=== PATIENT | female | born 1990 | race African-American/Black ===

== ENCOUNTER 2020-03-05 12:22 | Outpatient (CLI) | payer OTHER ==
[2020-03-05 13:10] VITALS: BP 108/75
--- NOTE | 2020-03-05 15:04 | Ultrasound Report ---
ULTRASOUND OBSTETRIC LIMITED ULTRASOUND BIOPHYSICAL PROFILE INDICATION / CLINICAL INFORMATION: nrnst in office. Clinical Gestational Age (GA): 40.0 weeks.days COMPARISON: None available. FINDINGS: BREATHING MOVEMENT = 2 GROSS BODY MOVEMENT = 2 TONE = 2 QUALITATIVE AMNIOTIC FLUID VOLUME = 2 TOTAL BIOPHYSICAL SCORE = 8/8 HEART RATE (beats per minute): 133 ADDITIONAL FINDINGS: None. IMPRESSION: 1. Biophysical Score = 8/8 2. heart rate of 133 bpm. Signer Name: Yves Harris MD Signed: 03/05/2020 3:00 PM Workstation Name: [id number]
== END 2020-03-05 14:35 | disposition home or self-care (01) ==
LOC: TRG 12:22 → APU 12:23 → TRG 14:35
PROVIDERS: ATTEND Obstetrics & Gynecology
DX: O47.1 False labor at or after 37 completed weeks of gestation (principal); Z3A.40 40 weeks gestation of pregnancy
CPT/HCPCS: 59025; 76819

== ENCOUNTER 2020-03-10 10:45 | Outpatient (CLI) | payer OTHER ==
[2020-03-10 11:29] VITALS: BP 115/73
--- NOTE | 2020-03-10 14:17 | Ultrasound Report ---
ULTRASOUND BIOPHYSICAL PROFILE INDICATION: need jose luis. COMPARISON: Biophysical profile 03/05/2020 FINDINGS: BREATHING MOVEMENT = 2 GROSS BODY MOVEMENT = 2 TONE = 2 QUALITATIVE AMNIOTIC FLUID VOLUME = 2 TOTAL BIOPHYSICAL SCORE = 02/16 AMNIOTIC FLUID INDEX (cm) = 10.8 PRESENTATION: Cephalic. HEART RATE (beats per minute): 133 IMPRESSION: 1. biophysical profile = 02/16 Signer Name: Jean Paul Huang MD Signed: 03/10/2020 2:13 PM Workstation Name: [id number]
== END 2020-03-10 14:35 | disposition home or self-care (01) ==
LOC: TRG 10:45 → APU 10:47 → TRG 14:35
PROVIDERS: ATTEND Obstetrics & Gynecology
DX: O47.1 False labor at or after 37 completed weeks of gestation (principal); Z3A.40 40 weeks gestation of pregnancy
CPT/HCPCS: 59025; 76815; 76819

== ENCOUNTER 2020-03-11 07:42 | Inpatient (IN) | payer OTHER ==
[2020-03-11] MEDS ORDERED: LACTATED RINGERS 1,000 ML IV SCH (09:00)
[2020-03-11] MEDS ORDERED: MINERAL OIL 30 ML ORAL LIQD PO PRN ×2 (09:00→22:00)
[2020-03-11] MEDS ORDERED: OXYTOCIN DRIP 30 UNITS/500 ML BAG IV SCH ×2 (09:00→10:00)
[2020-03-11] MEDS ORDERED: OXYTOCIN 20 UNIT/1000ML DRIP 20 UNITS/1,000 ML BAG IV SCH ×2 (09:00→10:00)
[2020-03-11] MEDS ORDERED: ACETAMINOPHEN 325 MG TAB PO PRN (09:00)
[2020-03-11] MEDS ORDERED: LIDOCAINE (2%) 20 MG/1 ML VIAL 20 ML MDV INFILTRATI SCH (09:00)
[2020-03-11] MEDS ORDERED: TERBUTALINE 1 MG/1 ML INJ SUB-Q PRN (09:00)
[2020-03-11] MEDS ORDERED: ePHEDrine SULFATE 50 MG/1 ML INJ IV PRN (09:00)
[2020-03-11 09:26] LABS: Mean Corpuscular HGB Conc 34 % (30-34); Mean Corpuscular Volume 77 fl (79-97); Platelet Count 204 K/mm3 (140-440); Red Blood Count 4.69 M/mm3 (3.65-5.03)
[2020-03-11 09:27] LABS: Red Cell Distribution Width 21.8 % (13.2-15.2)
[2020-03-11] MEDS ORDERED: AMPICILLIN/NS 2 GM/100 ML 2 GM/100 ML BAG IV ONE ×2 (10:00→14:00)
[2020-03-11] MEDS ORDERED: NALOXONE 0.4 MG/1 ML INJ IV PRN (10:00)
[2020-03-11] MEDS ORDERED: ONDANSETRON 4 MG/2 ML INJ IV PRN (10:00)
--- NOTE | 2020-03-11 10:18 | History and Physical Report ---
History of Present Illness Date of examination: 03/11/20 Date of admission: 03/11/20 07:43 Chief complaint: My water broke at 0630 this morning History of present illness: Early entry to care, uncomplicated course Past History Past Medical History: no pertinent history Past Surgical History: no surgical history Family/Genetic History: none Social history: no significant social history, - Obstetrical History Expected Date of Delivery: 03/04/20 Actual Gestation: 41 Week(s) 0 Day(s) : 2 Induced : 1 Medications and Allergies Allergies Allergy/AdvReac Type Severity Reaction Status Date / Time No Known Allergies Allergy Verified 03/05/20 12:49 Active Meds: Active Medications Acetaminophen (Tylenol) 650 mg PO Q4H PRN PRN Reason: Pain, Mild (1-3) Butorphanol Tartrate (Stadol) 2 mg IV Q2H PRN PRN Reason: Pain , Severe (7-10) Ephedrine Sulfate (Ephedrine Sulfate) 10 mg IV Q2M PRN PRN Reason: Hypotension Oxytocin/Sodium Chloride (Pitocin/Ns 30 Unit/500ml) 30 units in 500 mls @ 2 mls/hr IV TITR DANA; Protocol Lactated Ringer's (Lactated Ringers) 1,000 mls @ 125 mls/hr IV DIRECT DANA Oxytocin/Sodium Chloride (Pitocin/Ns 20 Unit/1000ml Drip) 20 units in 1,000 mls @ 125 mls/hr IV DIRECT DANA Ampicillin Sodium (Ampicillin/Ns 1 Gm/50 Ml) 1 gm in 50 mls @ 100 mls/hr IV Q4HR DANA; Protocol Ampicillin Sodium (Ampicillin/Ns 2 Gm/100 Ml) 2 gm in 100 mls @ 100 mls/hr IV ONCE ONE; Protocol Stop: 03/11/20 10:59 Lidocaine (Xylocaine 2%) 20 ml INFILTRATI ONCE DANA Stop: 03/12/20 08:59 Mineral Oil (Mineral Oil) 30 ml PO QHS PRN PRN Reason: Constipation Naloxone HCl (Naloxone) 0.1 mg IV Q2MIN PRN PRN Reason: Res Rate </= 8 or 02 SAT < 92% Ondansetron HCl (Zofran) 4 mg IV Q8H PRN PRN Reason: Nausea And Vomiting Terbutaline Sulfate (Brethine) 0.25 mg SUB-Q ONCE PRN PRN Reason: Hyperstimulation/Hypertonicity Review of Systems All systems: negative - Vital Signs Vital signs: Vital Signs Pulse BP 88 113/63 03/11/20 08:37 03/11/20 08:37 Temp Pulse Resp BP Pulse Ox 98.2 F 88 16 113/63 03/11/20 08:44 03/11/20 08:37 03/11/20 08:44 03/11/20 08:37 - Physical Exam Breasts: Positive: normal Cardiovascular: Regular rate Lungs: Positive: Clear to auscultation, Normal air movement Abdomen: Positive: normal appearance, soft, normal bowel sounds Genitourinary (Female): Positive: normal external genitalia, normal perenium Uterus: Positive: enlarged Anus/Rectum: Positive: normal perianal skin Extremities: Positive: normal - Obstetrical FHR: category 1 Uterine Contraction Monitor Mode: External Cervical Dilatation: 3 (leaking a large amount of clear fluid) Cervical Effacement Percentage: 80 Uterine Contraction Pattern: Irregular Uterine Tone Measurement Phase: Resting Uterine Contraction Intensity: Mild Results Result Diagrams: 03/11/20 08:45 Abnormal lab results 03/11/20 Range/Units 08:45 MCV 77 L (79-97) fl MCH 26 L (28-32) pg RDW 21.8 H (13.2-15.2) % All other labs normal. Assessment and Plan A: IUP @ 41 Weeks Category I Tracing PROM GBS Positive P: Admit to L&D Per Routine Orders Pitocin Induction GBS Prophylaxis
[2020-03-11] MEDS: LACTATED RINGERS 1,000 ML IV SCH ×2 (11:50→17:22)
[2020-03-11] MEDS ORDERED: AMPICILLIN/NS 1 GM/50 ML 1 GM/50 ML BAG IV SCH (14:00)
[2020-03-11] MEDS: BUTORPHANOL 2 MG/1 ML INJ IV PRN ×2 (17:07→20:23)
--- NOTE | 2020-03-11 18:59 | Progress Note ---
Subjective - Subjective Date of service: 03/11/20 Interval history: complete,0 station FHT category 1 poor maternal pushing effort plan to increase oxytocin by 2mu/min and allow for passive descent CFM, expect Foster Reed MD Objective - Vital Signs Vital Signs: Vital Signs - 12hr 03/11/20 03/11/20 03/11/20 08:37 08:44 10:53 Temperature 98.2 F Pulse Rate 88 92 H Respiratory 16 Rate Blood Pressure 113/63 O2 Sat by Pulse 99 Oximetry 03/11/20 03/11/20 03/11/20 10:55 10:56 10:58 Temperature 99 F Pulse Rate 74 102 H 76 Respiratory Rate Blood Pressure 123/72 O2 Sat by Pulse 99 Oximetry 03/11/20 03/11/20 03/11/20 11:03 11:08 11:13 Temperature Pulse Rate 65 86 74 Respiratory Rate Blood Pressure O2 Sat by Pulse 99 98 99 Oximetry 03/11/20 03/11/20 03/11/20 11:18 11:23 11:28 Temperature Pulse Rate 69 69 91 H Respiratory Rate Blood Pressure O2 Sat by Pulse 98 98 100 Oximetry 03/11/20 03/11/20 03/11/20 11:33 11:38 11:43 Temperature Pulse Rate 99 H 95 H 65 Respiratory Rate Blood Pressure O2 Sat by Pulse 99 99 98 Oximetry 03/11/20 03/11/20 03/11/20 11:48 11:53 11:58 Temperature Pulse Rate 82 91 H 95 H Respiratory Rate Blood Pressure O2 Sat by Pulse 98 100 99 Oximetry 03/11/20 03/11/20 03/11/20 12:03 12:08 12:13 Temperature Pulse Rate 70 81 75 Respiratory Rate Blood Pressure O2 Sat by Pulse 99 99 99 Oximetry 03/11/20 03/11/20 03/11/20 12:18 12:23 12:28 Temperature Pulse Rate 74 77 74 Respiratory Rate Blood Pressure O2 Sat by Pulse 97 99 99 Oximetry 03/11/20 03/11/20 03/11/20 12:33 12:38 12:43 Temperature Pulse Rate 75 74 76 Respiratory Rate Blood Pressure O2 Sat by Pulse 99 99 99 Oximetry 03/11/20 03/11/20 03/11/20 12:48 12:53 12:58 Temperature Pulse Rate 78 77 86 Respiratory Rate Blood Pressure O2 Sat by Pulse 99 98 98 Oximetry 03/11/20 03/11/20 03/11/20 13:00 13:03 13:08 Temperature Pulse Rate 73 72 74 Respiratory Rate Blood Pressure 111/70 O2 Sat by Pulse 99 99 Oximetry 03/11/20 03/11/20 03/11/20 13:13 13:18 13:23 Temperature Pulse Rate 71 74 77 Respiratory Rate Blood Pressure O2 Sat by Pulse 98 99 99 Oximetry 03/11/20 03/11/20 03/11/20 13:35 13:40 13:45 Temperature Pulse Rate 74 77 79 Respiratory Rate Blood Pressure O2 Sat by Pulse 99 99 97 Oximetry 03/11/20 03/11/20 03/11/20 13:50 13:55 14:00 Temperature Pulse Rate 76 67 67 Respiratory Rate Blood Pressure O2 Sat by Pulse 99 99 98 Oximetry 03/11/20 03/11/20 03/11/20 14:05 14:10 14:15 Temperature Pulse Rate 69 82 87 Respiratory Rate Blood Pressure O2 Sat by Pulse 99 97 97 Oximetry 03/11/20 03/11/20 03/11/20 14:20 14:25 14:30 Temperature Pulse Rate 78 69 74 Respiratory Rate Blood Pressure O2 Sat by Pulse 98 97 98 Oximetry 03/11/20 03/11/20 03/11/20 14:35 14:43 14:48 Temperature Pulse Rate 74 72 69 Respiratory Rate Blood Pressure O2 Sat by Pulse 98 99 99 Oximetry 03/11/20 03/11/20 03/11/20 14:53 14:58 15:03 Temperature Pulse Rate 76 73 80 Respiratory Rate Blood Pressure O2 Sat by Pulse 99 99 99 Oximetry 03/11/20 03/11/20 03/11/20 15:08 15:13 15:18 Temperature Pulse Rate 80 81 88 Respiratory Rate Blood Pressure O2 Sat by Pulse 99 99 99 Oximetry 03/11/20 03/11/20 03/11/20 15:23 15:28 15:33 Temperature Pulse Rate 70 90 68 Respiratory Rate Blood Pressure O2 Sat by Pulse 99 99 99 Oximetry 03/11/20 03/11/20 03/11/20 15:38 15:43 15:48 Temperature Pulse Rate 65 72 66 Respiratory Rate Blood Pressure O2 Sat by Pulse 99 99 98 Oximetry 03/11/20 03/11/20 03/11/20 15:53 15:58 16:03 Temperature Pulse Rate 69 69 94 H Respiratory Rate Blood Pressure O2 Sat by Pulse 98 99 98 Oximetry 03/11/20 03/11/20 03/11/20 16:08 16:13 16:18 Temperature Pulse Rate 79 72 83 Respiratory Rate Blood Pressure O2 Sat by Pulse 99 98 99 Oximetry 03/11/20 03/11/20 03/11/20 16:23 16:28 16:41 Temperature Pulse Rate 72 74 89 Respiratory Rate Blood Pressure O2 Sat by Pulse 99 98 100 Oximetry 03/11/20 03/11/20 03/11/20 16:46 16:51 16:56 Temperature Pulse Rate 85 79 81 Respiratory Rate Blood Pressure O2 Sat by Pulse 98 100 99 Oximetry 03/11/20 03/11/20 03/11/20 17:01 17:06 17:11 Temperature Pulse Rate 92 H 81 87 Respiratory Rate Blood Pressure O2 Sat by Pulse 99 99 96 Oximetry 03/11/20 03/11/20 03/11/20 17:13 17:16 17:21 Temperature Pulse Rate 77 79 83 Respiratory Rate Blood Pressure O2 Sat by Pulse 92 95 96 Oximetry 03/11/20 03/11/20 03/11/20 17:22 17:26 17:30 Temperature Pulse Rate 82 86 80 Respiratory Rate Blood Pressure 119/79 O2 Sat by Pulse 94 95 Oximetry 03/11/20 03/11/20 03/11/20 17:31 17:36 17:39 Temperature Pulse Rate 82 93 H 102 H Respiratory Rate Blood Pressure O2 Sat by Pulse 96 96 94 Oximetry 03/11/20 03/11/20 03/11/20 17:41 17:46 17:51 Temperature Pulse Rate 74 102 H 76 Respiratory Rate Blood Pressure O2 Sat by Pulse 96 96 97 Oximetry 03/11/20 03/11/20 03/11/20 17:56 18:01 18:06 Temperature Pulse Rate 74 82 84 Respiratory Rate Blood Pressure 139/87 O2 Sat by Pulse 96 96 98 Oximetry 03/11/20 03/11/20 03/11/20 18:11 18:16 18:21 Temperature Pulse Rate 97 H 86 100 H Respiratory Rate Blood Pressure O2 Sat by Pulse 98 98 97 Oximetry 03/11/20 03/11/20 03/11/20 18:24 18:26 18:30 Temperature 98.5 F Pulse Rate 93 H 87 85 Respiratory Rate Blood Pressure 107/71 O2 Sat by Pulse 98 Oximetry 03/11/20 03/11/20 03/11/20 18:31 18:36 18:41 Temperature Pulse Rate 85 89 82 Respiratory Rate Blood Pressure O2 Sat by Pulse 97 97 97 Oximetry 03/11/20 03/11/20 18:46 18:51 Temperature Pulse Rate 86 91 H Respiratory Rate Blood Pressure O2 Sat by Pulse 98 99 Oximetry - Labs Labs: Abnormal Labs 03/11/20 08:45 MCV 77 L MCH 26 L RDW 21.8 H Laboratory Results - last 24 hr 03/11/20 03/11/20 08:45 08:45 WBC 9.1 RBC 4.69 Hgb 12.0 Hct 36.0 MCV 77 L MCH 26 L MCHC 34 RDW 21.8 H Plt Count 204 Blood Type B POSITIVE Antibody Screen Negative
[2020-03-11] MEDS ORDERED: METHYLERGONOVINE MALEATE 0.2 MG/ML VIAL IM ONE (20:18)
[2020-03-11] MEDS ORDERED: OXYTOCIN 10 UNIT/1 ML INJ ONE (20:20)
--- NOTE | 2020-03-11 21:00 | Procedure Note ---
OB Delivery Note - Delivery Date of Delivery: 03/11/20 Surgeon: GRADY DECKER Estimated blood loss: 300cc - Vaginal Delivery position: OA Intrapartum events: none Delivery induction: none Delivery augmentation: pitocin Delivery monitor: external FHT, external uterine Route of delivery: Delivery placenta: spontaneous Delivery cord: 3 umbilical vessels Episiotomy: midline Delivery laceration: 3rd degree Delivery repair: chromic Anesthesia: local Delivery comments: Patient pushed to deliver over a midline episiotomy. Position NORMA, loose nuchal cord reduced after delivery. The anterior shoulder delivered atrauamatically with continuous downward traction after ~1 minute. No additional maneuvers required. Baby placed on maternal abdomen, spontaneous cry. REGGIE team present for delivery. Cord clamped and cut after ~1 minute delayed cord clamping. An intact placenta with three vessel cord delivered spontaneously. Uterine atony noted with brisk bleeding after delivery of the placenta. Methergine 0.2mg given IM, Oxytocin 10mg given IM x1 dose. The fundus was noted to be firm with bimanual massage and medication after 2 minutes and the bleeding resolved. The midline episiotomy with a third degree extension was repaired with 2-0 vicryl in the usual fashion. Patient given 5cc lidocaine and stadol 2mg IM for analgesia. All sponge, needle and instrument counts correctx2. Mother baby stable to . KEENAN Olson present for delivery and repair. EBL 300ml Dr Brianna BRUNSON - Infant A at 1 minute: 8 (4.241 Kg) at 5 minutes: 9 Gender: Male (4/124kg)
[2020-03-12] MEDS ORDERED: HYDROcodone/ACETAMINOPHEN 5-325 MG TAB PO PRN (01:27)
[2020-03-12] MEDS ORDERED: BENZOCAINE/MENTHOL 20/0.5% TOP SPRAY 56 GM TP PRN (01:29)
[2020-03-12] MEDS ORDERED: WITCH HAZEL/ GLYCERIN PAD TP PRN (01:29)
[2020-03-12] MEDS: IBUPROFEN 600 MG TAB PO SCH ×3 (02:18→17:00)
[2020-03-12 11:08] LABS: Hemoglobin 8.6 gm/dl (10.1-14.3)
--- NOTE | 2020-03-12 11:34 | Progress Note ---
Assessment and Plan - Patient Problems (1) Status post normal vaginal delivery Current Visit: Yes Status: Acute Plan to address problem: Continue routine PP orders Anticipate d/c home in 24-48 hrs F/U at office in 6 wks for routine PP visit Subjective - Subjective Date of service: 03/12/20 Principal diagnosis: S/P ; PPD#1 Interval history: See admission H & P; OB delivery summary and PP progress notes Patient reports: appetite normal, voiding normally, pain well controlled (with medications), flatus, ambulating normally, no bowel movement [place]: doing well, bottle feeding Objective - Vital Signs Latest vital signs: Vital Signs Temp Pulse Resp BP BP Pulse Ox 03/12/20 08:25 98.3 F 80 20 99/59 03/12/20 05:24 97.9 F 76 18 103/62 97 03/12/20 01:25 98.1 F 89 16 112/78 96 03/11/20 22:30 97.8 F 81 18 116/66 98 03/11/20 22:21 92 H 99 03/11/20 22:16 82 99 03/11/20 22:12 85 110/65 03/11/20 22:11 87 99 03/11/20 22:06 81 98 03/11/20 22:01 82 97 03/11/20 21:56 85 98 03/11/20 21:51 86 99 03/11/20 21:46 87 98 03/11/20 21:41 88 97 03/11/20 21:36 81 97 03/11/20 21:32 80 107/61 03/11/20 21:31 85 97 03/11/20 21:26 83 98 03/11/20 21:21 93 H 98 03/11/20 21:16 94 H 98 03/11/20 21:11 94 H 98 03/11/20 21:06 90 97 03/11/20 21:01 99 H 96 03/11/20 20:56 90 96 03/11/20 20:51 92 H 107/56 96 03/11/20 20:46 94 H 96 03/11/20 20:41 108 H 98 03/11/20 20:36 105 H 98 03/11/20 20:31 112 H 99 03/11/20 20:26 111 H 99 03/11/20 20:21 120 H 99 03/11/20 20:16 124 H 97 03/11/20 20:11 142 H 98 03/11/20 20:07 163 H 92 03/11/20 20:06 156 H 95 03/11/20 20:01 152 H 99 03/11/20 19:56 159 H 97 03/11/20 19:51 56 L 98 03/11/20 19:49 114 H 77 L 03/11/20 19:46 149 H 97 03/11/20 19:41 131 H 98 03/11/20 19:36 131 H 98 03/11/20 19:31 106 H 99 03/11/20 19:26 100 H 98 03/11/20 19:21 86 99 03/11/20 19:16 94 H 99 03/11/20 19:11 95 H 98 03/11/20 19:07 96 H 93 03/11/20 19:06 97.8 F 86 14 129/89 99 03/11/20 19:01 88 129/89 98 03/11/20 18:56 90 98 03/11/20 18:51 91 H 99 03/11/20 18:46 86 98 03/11/20 18:41 82 97 03/11/20 18:36 89 97 03/11/20 18:31 85 97 03/11/20 18:30 85 107/71 03/11/20 18:26 87 98 03/11/20 18:24 98.5 F 93 H 03/11/20 18:21 100 H 97 03/11/20 18:16 86 98 03/11/20 18:11 97 H 98 03/11/20 18:06 84 98 03/11/20 18:01 82 139/87 96 03/11/20 17:56 74 96 03/11/20 17:51 76 97 03/11/20 17:46 102 H 96 03/11/20 17:41 74 96 03/11/20 17:39 102 H 94 03/11/20 17:36 93 H 96 03/11/20 17:31 82 96 03/11/20 17:30 80 119/79 03/11/20 17:26 86 95 03/11/20 17:22 82 94 03/11/20 17:21 83 96 03/11/20 17:16 79 95 03/11/20 17:13 77 92 03/11/20 17:11 87 96 03/11/20 17:06 81 99 03/11/20 17:01 92 H 99 03/11/20 16:56 81 99 03/11/20 16:51 79 100 03/11/20 16:46 85 98 03/11/20 16:41 89 100 03/11/20 16:28 74 98 03/11/20 16:23 72 99 03/11/20 16:18 83 99 03/11/20 16:13 72 98 03/11/20 16:08 79 99 03/11/20 16:03 94 H 98 03/11/20 15:58 69 99 03/11/20 15:53 69 98 03/11/20 15:48 66 98 03/11/20 15:43 72 99 03/11/20 15:38 65 99 03/11/20 15:33 68 99 03/11/20 15:28 90 99 03/11/20 15:23 70 99 03/11/20 15:18 88 99 03/11/20 15:13 81 99 03/11/20 15:08 80 99 03/11/20 15:03 80 99 03/11/20 14:58 73 99 03/11/20 14:53 76 99 03/11/20 14:48 69 99 03/11/20 14:43 72 99 03/11/20 14:35 74 98 03/11/20 14:30 74 98 03/11/20 14:25 69 97 03/11/20 14:20 78 98 03/11/20 14:15 87 97 03/11/20 14:10 82 97 03/11/20 14:05 69 99 03/11/20 14:00 67 98 03/11/20 13:55 67 99 03/11/20 13:50 76 99 03/11/20 13:45 79 97 03/11/20 13:40 77 99 03/11/20 13:35 74 99 03/11/20 13:23 77 99 03/11/20 13:18 74 99 03/11/20 13:13 71 98 03/11/20 13:08 74 99 03/11/20 13:03 72 99 03/11/20 13:00 73 111/70 03/11/20 12:58 86 98 03/11/20 12:53 77 98 03/11/20 12:48 78 99 03/11/20 12:43 76 99 03/11/20 12:38 74 99 03/11/20 12:33 75 99 03/11/20 12:28 74 99 03/11/20 12:23 77 99 03/11/20 12:18 74 97 03/11/20 12:13 75 99 03/11/20 12:08 81 99 03/11/20 12:03 70 99 03/11/20 11:58 95 H 99 03/11/20 11:53 91 H 100 03/11/20 11:48 82 98 03/11/20 11:43 65 98 03/11/20 11:38 95 H 99 03/11/20 11:33 99 H 99 Intake and Output 03/11/20 03/12/20 03/12/20 23:59 07:59 15:59 Intake Total 724.567 320 Output Total 950 350 Balance 724.567 -950 -30 Intake: IV 724.567 Lactated Ringers 1,000 ml 691.667 @ 125 mls/hr IV DIRECT DANA Rx#:[id number] PITOCin/NS 30 UNIT/500ML 32.9 30 units In 500 ml @ 2 mls/hr IV TITR DANA Rx#: [id number] Oral 320 Output: Urine 950 350 Void 950 350 Other: Total, Intake Amount 320 Total, Output Amount 450 350 # Voids Void 1 3 Estimated Blood Loss 500 - Exam Breasts: Present: normal Cardiovascular: Present: Regular rate Lungs: Present: Normal air movement Abdomen: Present: soft Uterus: Present: firm, fundal height below umbilicus (U-2) Extremities: Present: edema (in bilateral hands) Incision: Present: other (ML episiotomy, healing as expected) - Labs Labs: Abnormal lab results 03/12/20 Range/Units 10:28 Hgb 8.6 L D (10.1-14.3) gm/dl Hct 27.0 L D (30.3-42.9) %
[2020-03-13] MEDS: IBUPROFEN 600 MG TAB PO SCH ×2 (02:45→11:42)
--- NOTE | 2020-03-13 09:20 | Progress Note ---
Assessment and Plan A: PP Day #2 Asymptomatic Anemia P: Follow Routine Orders Infed 100mg Im x 1 Dose D/C home today RTO in 3 Weeks Subjective - Subjective Date of service: 03/13/20 Principal diagnosis: S/P ; PPD#1 Interval history: Early entry to care, uncomplicated course Patient reports: appetite normal, voiding normally, pain well controlled, flatus, bowel movement, ambulating normally : doing well, bottle feeding Objective - Vital Signs Latest vital signs: Vital Signs Temp Pulse Resp BP BP Pulse Ox 03/13/20 08:00 98.1 F 74 18 104/73 98 03/13/20 00:38 98.1 F 88 20 106/71 96 03/12/20 15:50 98.2 F 81 20 97/57 03/12/20 11:25 98 F 77 20 95/58 Intake and Output 03/12/20 03/13/20 03/13/20 22:59 06:59 14:59 Intake Total 240 240 360 Balance 240 240 360 Intake: Oral 240 240 120 Intake, Free Water 240 Other: Total, Intake Amount 120 240 120 # Voids Void 1 1 - Exam Breasts: Present: normal Cardiovascular: Present: Regular rate Lungs: Present: Clear to auscultation, Normal air movement Abdomen: Present: normal appearance, soft, normal bowel sounds Uterus: Present: normal, firm, fundal height below umbilicus Extremities: Present: normal - Labs Labs: Abnormal lab results 03/12/20 Range/Units 10:28 Hgb 8.6 L D (10.1-14.3) gm/dl Hct 27.0 L D (30.3-42.9) %
--- NOTE | 2020-03-13 09:22 | Discharge Summary ---
Providers - Providers Date of Admission: 03/11/20 07:43 Date of discharge: 03/13/20 Attending physician: GRADY DECKER MD Primary care physician: GRADY DECKER MD Hospitalization Reason for admission: rupture of membranes Delivery: Episiotomy: midline Laceration: 3rd degree Other procedures: none complications: none Discharge diagnosis: IUP at term delivered baby: male Condition at discharge: Good Disposition: DC-01 TO HOME OR SELFCARE Plan - Provider Discharge Summary Activity: routine, no sex for 6 weeks, no heavy lifting 4 weeks, no strenuous exercise Diet: routine Instructions: routine Additional instructions: [] Smoking cessation referral if applicable(refer to patient education folder for contact #) [] Refer to [facility] Booklet Call your doctor immediately for: * Fever > 100.5 * Heavy vaginal bleeding ( >1 pad per hour) * Severe persistent headache * Shortness of breath * Reddened, hot, painful area to leg or breast * Drainage or odor from incision. * Keep incision clean and dry at all times and follow doctor's instructions regarding bathing/showering - Follow up plan Follow up: GRADY DECKER MD [Primary Care Provider] - 04/03/20
[2020-03-13] MEDS ORDERED: IRON DEXTRAN COMPLEX 100 MG/2 ML INJ IM ONE (10:00)
[2020-03-13 16:44] VITALS: BP 106/68
== END 2020-03-13 16:55 | disposition home or self-care (01) | DRG 768 ==
LOC: APU 07:42 → TRG 07:42 → APU 07:43 → TRG 07:43 → APU 07:43 → LD 10:45 → OB 23:16
PROVIDERS: ADMIT Obstetrics & Gynecology; ATTEND Obstetrics & Gynecology
PROC: 10E0XZZ Delivery of Products of Conception, External Approach (ICD-10-PCS; principal; 2020-03-11)
PROC: 0DQR0ZZ Repair Anal Sphincter, Open Approach (ICD-10-PCS; 2020-03-11)
PROC: 0W8NXZZ Division of Female Perineum, External Approach (ICD-10-PCS; 2020-03-11)
PROC: 3E033VJ Introduction of Other Hormone into Peripheral Vein, Percutaneous Approach (ICD-10-PCS; 2020-03-11)
DX: O42.92 Full-term premature rupture of membranes, unspecified as to length of time between rupture and onset of labor (principal); Z37.0 Single live birth; O70.20 Third degree perineal laceration during delivery, unspecified; O99.824 Streptococcus B carrier state complicating childbirth; O69.81X0 Labor and delivery complicated by cord around neck, without compression, not applicable or unspecified; O90.81 Anemia of the puerperium; D64.9 Anemia, unspecified; Z3A.41 41 weeks gestation of pregnancy
CPT/HCPCS: 36415; 59025; 76815; 76819; 85014; 85018; 85027; 86850; 86900; 86901; G0378; J0290; J0595; J1750; J2210; J2590; J7120